=== PATIENT | male | born 1930 | race Caucasian/White ===

== ENCOUNTER 2018-03-04 11:52 | Emergency (ER) | payer OTHER ==
[~2018-03-04] VITALS: Ht 172.7 cm; Wt 72.6 kg
[2018-03-04] MEDS ORDERED: METFORMIN HCL500 MG (12:07)
[2018-03-04] MEDS ORDERED: GLIMEPIRIDE2 MG (12:08)
[2018-03-04] MEDS ORDERED: LOSARTAN POTASS25 MG ×2 (12:10→12:12)
[2018-03-04] MEDS ORDERED: SIMVASTATIN5 MG (12:10)
[2018-03-04] MEDS ORDERED: AMLODIPINE-OLM1 EAC1 (12:11)
[2018-03-04] MEDS ORDERED: TOPROL XL25 M1 (12:12)
[2018-03-04] MEDS ORDERED: VASOTEC2.5 MG (12:12)
== END 2018-03-04 15:46 | disposition home or self-care (01) ==
LOC: ER 11:52 → EDBD 11:55 → ER 15:46
DX: R41.0 Disorientation, unspecified (principal)